=== PATIENT | female | born 1985 | race Hispanic/Latino ===

== ENCOUNTER 2024-11-05 18:48 | Emergency (ER) | payer BC, SELFPAY ==
[2024-11-05] MEDS ORDERED: HYDROCODONE/APAP 5/325 MG TAB ONE (19:38)
--- NOTE | 2024-11-05 19:40 | EDPHYS ---
Physician Documentation [facility] Name: Gisele Juárez Age: 38 yrs Sex: Female : 1985 Arrival Date: 11/05/2024 Time: 18:48 Bed IW1 Private MD: ED Physician Chava Lara HPI: 11/05 19:36 This 38 yrs old Female presents to ER via Ambulatory with complaints of sp3 Toothache. 19:36 38-year-old female with no significant past medical history presents with right sp3 mandibular pain and swelling for the last 48 hours. Patient states she has a dental abscess. She has a history of the same in the past. She has made an appointment for this Monday but states she needs pain medication and antibiotics. She denies any sore throat, difficulty breathing, airway compromise, chest pain, shortness of breath or any other symptoms on review of systems at this time.. Historical: - Allergies: 19:36 No Known Allergies; hb - Home Meds: 19:36 None [Active]; hb - PMHx: 19:36 None; hb - PSHx: 19:36 None; hb - Immunization history:: Adult Immunizations up to date. - Infectious Disease History:: Denies. - Social history:: Smoking status: Patient denies any tobacco usage or history of. ROS: 19:37 Constitutional: Negative for fever, chills, and weight loss, Eyes: Negative for injury, sp3 pain, redness, and discharge, Neck: Negative for injury, pain, and swelling, Cardiovascular: Negative for chest pain, palpitations, and edema, Respiratory: Negative for shortness of breath, cough, wheezing, and pleuritic chest pain, Abdomen/GI: Negative for abdominal pain, nausea, vomiting, diarrhea, and constipation, Back: Negative for injury and pain, MS/Extremity: Negative for injury and deformity, Skin: Negative for injury, rash, and discoloration, Neuro: Negative for headache, weakness, numbness, tingling, and seizure, Psych: Negative for depression, anxiety, suicide ideation, homicidal ideation, and hallucinations, Allergy/Immunology: Negative for hives, rash, and allergies, Endocrine: Negative for neck swelling, polydipsia, polyuria, polyphagia, and marked weight changes, Hematologic/Lymphatic: Negative for swollen nodes, abnormal bleeding, and unusual bruising, 19:37 All other systems are negative, Exam: 19:37 Constitutional: This is a well developed, well nourished patient who is awake, alert, sp3 and in no acute distress. Eyes: Pupils equal round and reactive to light, extra-ocular motions intact. Lids and lashes normal. Conjunctiva and sclera are non-icteric and not injected. Cornea within normal limits. Periorbital areas with no swelling, redness, or edema. Neck: Trachea midline, no thyromegaly or masses palpated, and no cervical lymphadenopathy. Supple, full range of motion without nuchal rigidity, or vertebral point tenderness. No Meningismus. Chest/axilla: Normal chest wall appearance and motion. Nontender with no deformity. No lesions are appreciated. Cardiovascular: Regular rate and rhythm with a normal S1 and S2. No gallops, murmurs, or rubs. Normal PMI, no JVD. No pulse deficits. Respiratory: Lungs have equal breath sounds bilaterally, clear to auscultation and percussion. No rales, rhonchi or wheezes noted. No increased work of breathing, no retractions or nasal flaring. Abdomen/GI: Soft, non-tender, with normal bowel sounds. No distension or tympany. No guarding or rebound. No evidence of tenderness throughout. Back: No spinal tenderness. No costovertebral tenderness. Full range of motion. Skin: Warm, dry with normal turgor. Normal color with no rashes, no lesions, and no evidence of cellulitis. MS/ Extremity: Pulses equal, no cyanosis. Neurovascular intact. Full, normal range of motion. Neuro: Awake and alert, GCS 15, oriented to person, place, time, and situation. Cranial nerves II-XII grossly intact. Motor strength 5/5 in all extremities. Sensory grossly intact. Cerebellar exam normal. Normal gait. Psych: Awake, alert, with orientation to person, place and time. Behavior, mood, and affect are within normal limits. 19:37 Head/face: Patient has poor dentition particularly in the right mandible. Exterior mandible swollen consistent with dental abscess.. Vital Signs: 19:35 BP 174 / 99; Pulse 74; Resp 16; Temp 98; Pulse Ox 100% on R/A; Weight 58.97 kg; Height hb 5 ft. 3 in. ; Pain 8/10; 19:35 Body Mass Index 23.03 (58.97 kg, 160.02 cm) hb 19:35 Pain Scale: Adult hb MDM: 19:36 Medical Screening Exam initiated sp3 19:38 Data reviewed: vital signs, nurses notes. ED course: Patient has right ventricular sp3 dental abscess. I have ruled out all other options. Will place on Augmentin and tramadol for home and administer Hurricane 2 tabs p.o. in the ED prior to discharge.. Administered Medications: 19:42 Drug: HYDROcodone-acetaminophen PO 5 mg-325 mg 2 tabs PO once Route: PO; hb 19:44 Follow up: Response: Medication administered at discharge. hb Disposition Summary: 11/05/24 19:39 Discharge Ordered Notes: Location: Home sp3 Condition: Stable sp3 Diagnosis - Dental abscess sp3 Followup: sp3 - With: Private Physician - When: Upon discharge from the Emergency Department - Reason: Continuance of care Discharge Instructions: - Discharge Summary Sheet sp3 - Dental Abscess sp3 Forms: - Medication Reconciliation Form sp3 - Antibiotic Education sp3 - Prescription Opioid Use sp3 - Patient Portal Instructions sp3 - Leadership Thank You Letter sp3 Prescriptions: - Augmentin 875-125 mg Oral Tablet - take 1 tablet ORAL route every 12 hours for 10 days; 20 tablet; Refills: 0, sp3 Product Selection Permitted - Tramadol 50 mg Oral Tablet - take 1 tablet ORAL route every 8 hours as needed; 12 tablet; Refills: 0, sp3 Product Selection Permitted Signatures: Cindi Estrada, MARIA A RN Chava Lara MD MD sp3
--- NOTE | 2024-11-05 19:40 | ER ---
Nurse's Notes [facility] Name: Gisele Juárez Age: 38 yrs Sex: Female : 1985 Arrival Date: 11/05/2024 Time: 18:48 Bed IW1 Private MD: Diagnosis: Dental abscess Presentation: 11/05 19:35 Chief complaint: Right lower molar pain and facial swelling swelling x 2 days. hb Coronavirus screen: At this time, the client does not indicate any symptoms associated with coronavirus-19. Ebola Screen: No symptoms or risks identified at this time. Initial Sepsis Screen: Does the patient meet any 2 criteria? No. Patient's initial sepsis screen is negative. Does the patient have a suspected source of infection? No. Patient's initial sepsis screen is negative. Risk Assessment: Do you want to hurt yourself or someone else? Patient reports no desire to harm self or others. Onset of symptoms was November 04, 2024. 19:35 Method Of Arrival: Ambulatory hb 19:35 Acuity: ZEV 4 hb Historical: - Allergies: 19:36 No Known Allergies; hb - Home Meds: 19:36 None [Active]; hb - PMHx: 19:36 None; hb - PSHx: 19:36 None; hb - Immunization history:: Adult Immunizations up to date. - Infectious Disease History:: Denies. - Social history:: Smoking status: Patient denies any tobacco usage or history of. Vital Signs: 19:35 BP 174 / 99; Pulse 74; Resp 16; Temp 98; Pulse Ox 100% on R/A; Weight 58.97 kg; Height hb 5 ft. 3 in. ; Pain 8/10; 19:35 Body Mass Index 23.03 (58.97 kg, 160.02 cm) hb 19:35 Pain Scale: Adult hb ED Course: 18:51 Patient arrived in ED. im 18:54 Chava Lara MD is Attending Physician. sp3 18:54 Soo Sykes FNP-C is [facility]. kb 19:36 Triage completed. hb 19:36 Arm band placed on. hb Administered Medications: 19:42 Drug: HYDROcodone-acetaminophen PO 5 mg-325 mg 2 tabs PO once Route: PO; hb 19:44 Follow up: Response: Medication administered at discharge. hb Outcome: 19:39 Discharge ordered by . sp3 19:43 Discharged to home ambulatory, 19:43 Condition: stable 19:43 Discharge instructions given to patient, Instructed on discharge instructions, follow up and referral plans. medication usage, Demonstrated understanding of instructions, follow-up care, medications, Prescriptions given X 2, 19:44 Patient left the ED. hb Signatures: Soo Sykes, HUGO-C HUGO-Cindi Hurt RN RN Chava Lara MD MD sp3 Elda Real
[2024-11-05 22:30] VITALS: BP 174/99; TEMP 98; O2SAT 100
== END 2024-11-05 19:44 | disposition home or self-care (01) ==
LOC: ER 18:48
DX: K04.7 Periapical abscess without sinus (principal)

== ENCOUNTER 2024-12-31 13:49 | Inpatient (IN) | payer SELFPAY ==
[2024-12-31 15:40] LABS: Specific Gravity 1.007 (1.005-1.030)
[2024-12-31 15:42] LABS: Specific Gravity 1.007 (1.005-1.030); Sqamous Epithelial <5 /HPF (None Seen); Urine Bacteria <20 /HPF (<20); Urine Bilirubin NEGATIVE (Negative); Urine Blood Trace (Negative); Urine Clarity Extremely Turbid (Clear); Urine Color Light-Yellow (Yellow); Urine Crystals Unidentified Few /HPF (None Seen); Urine Culture Reflex Order REFLEXED; Urine Glucose NEGATIVE (Negative); Urine Ketones NEGATIVE (Negative); Urine Microscopic Reflex YN ORDER UMIC; Urine Mucus Slight /HPF (None Seen); Urine Nitrite NEGATIVE (Negative); Urine Protein 1+ (Negative); Urine Urobilinogen 2+ (Normal); Urine WBC >50 /HPF (<5); Urine WBC Clump Rare /HPF (None Seen)
[2024-12-31 15:55] LABS: Influenza A Ag Negative; Influenza B Ag Negative; SARS-CoV-2 Antigen Rapid Res Negative (Negative)
[2024-12-31] MEDS ORDERED: ACETAMINOPHEN 500 MG TAB ONE (16:28)
[2024-12-31] MEDS ORDERED: NA CHLORIDE 0.9% 1,000 ML ONE (16:29)
[2024-12-31 16:39] LABS: Absolute Lymphocytes (CBC) 1.8 K/uL (0.7-4.9); Absolute Monocytes 1.5 K/uL (0.1-1.3); Absolute Neutrophil 10.7 K/uL (1.8-8.0); Basophils % 0.3 % (0-1.3); Eosinophils % 0.1 % (0-4.4); Hemoglobin 11.3 g/dL (12.0-15.0); Lymphocytes % 12.8 % (15.3-44.8); MCH 32.9 pg (27.0-35.0); MCHC 35.4 g/dL (32.0-36.0); MCV 92.9 fL (80-100); MPV 7.9 fL (7.6-11.3); Monocytes % 10.9 % (3.3-12.3); Neutrophils % 75.9 % (41.7-73.7); Platelets 340 thou/uL (152-406); RBC Red Blood Cell Count 3.44 M/uL (3.86-4.86)
[2024-12-31 17:17] LABS: Monoscreen NEG (NEG)
[2024-12-31 17:27] LABS: Anion Gap 10.7 mEq/L (5.0-15.0); Potassium 2.7 mEq/L (3.5-5.1)
[2024-12-31 17:41] LABS: Sodium Level 132 mEq/L (136-145)
[2024-12-31 17:43] LABS: BUN Blood Urea Nitrogen < 3 mg/dL (7-18); Bicarbonate 27 mEq/L (21-32); Glomerular Filtration Rate 114 ml/min (=/>90); Glucose Level 129 mg/dL (74-106)
--- NOTE | 2024-12-31 19:17 | RAD REPORT ---
EXAMINATION: CT ABDOMEN AND PELVIS WITH CONTRAST CLINICAL INDICATION: Flank pain;Fever TECHNIQUE: CT abdomen and pelvis was performed, after the administration of IV contrast, as per formerly [facility] protocol. Axial, sagittal and coronal reconstructions were obtained. One or more of the following dose reduction techniques were used: Automated exposure control, adjustment of the mA and k V according to patient size, and iterative reconstruction. Unless otherwise specified, incidental findings do not require dedicated imaging follow-up. COMPARISON: No prior exam. FINDINGS: LOWER CHEST: The visualized lung bases are clear. LIVER: Normal in size and contour. No focal lesion. Grossly unremarkable gallbladder. SPLEEN: Normal size. No focal lesion. PANCREAS: No mass, ductal dilation, or nicko-pancreatic fluid. ADRENALS: Normal; no mass. KIDNEYS: The right kidney appears enlarged with mild perinephric inflammation and several low-attenua tion areas compatible with right-sided pyelonephritis. No perinephric abscess. The left kidney appears normal. GASTROINTESTINAL TRACT: No evidence of free air, significant intra-abdominal free fluid, bowel obstru ction or abscess. APPENDIX: Normal appendix. LYMPH NODES: No lymphadenopathy. MUSCULOSKELETAL: No acute or suspicious osseous abnormality. Anterior abdominal wall hernia mesh. Sma ll fat-containing umbilical hernia. ADDITIONAL FINDINGS: Large ventral hernia to the right of midline anterior lower pelvis with hernia s ac noted to measure 8.4 x 3 cm and contains mildly reticulated fat. IMPRESSION: Right-sided pyelonephritis is present. No abscess seen. Large ventral hernia as detailed in the pelvis containing mildly reticulated fat, could indicate inca rceration. Advise correlation with physical exam findings in this region.
--- NOTE | 2024-12-31 19:25 | EDPHYS ---
Physician Documentation [facility] Name: Gisele Juárez Age: 39 yrs Sex: Female : 1985 Arrival Date: 12/31/2024 Time: 13:49 Bed 24 Private MD: ED Physician Chava Lara HPI: 12/31 14:10 This 39 yrs old Female presents to ER via Unassigned with complaints of Flu kb Symptoms. 14:10 Pt is a 39 year old female who presents for fever, chills, nausea, headache, bodyaches kb and excessive thirst that started 4 days ago. Denies vomiting, diarrhea, cough, congestion, sore throat, sick contacts. . 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 - Infectious Disease History:: Denies. ROS: 14:10 Constitutional: As per HPI kb Exam: 14:10 Constitutional: This is a well developed, well nourished patient who is awake, alert, kb and in no acute distress. Head/Face: Normocephalic, atraumatic. ENT: Moist Mucous membranes Cardiovascular: Regular rate Respiratory: Respirations even and unlabored. No increased work of breathing. Talking in full sentences Abdomen/GI: Soft, non-tender. No distention Skin: Warm, dry with normal turgor. Normal color. MS/ Extremity: Pulses equal, no cyanosis. Neurovascular intact. Full, normal range of motion. Neuro: Awake and alert, GCS 15, oriented to person, place, time, and situation. 19:34 ECG was reviewed by the Attending Physician. kb Vital Signs: 15:23 BP 119 / 71; Pulse 115; Resp 18; Pulse Ox 98% ; Pain 8/10; bc6 16:07 Pulse 116; Temp 103(O); Pulse Ox 98% on R/A; bd 16:37 BP 119 / 74; Pulse 103; Resp 20; Temp 99.9; Pulse Ox 100% ; kj2 17:39 BP 112 / 63; Pulse 93; Resp 18; Pulse Ox 99% on R/A; kj2 18:51 BP 111 / 62; Pulse 88; Resp 20; Pulse Ox 100% ; kj2 19:29 BP 108 / 67; Pulse 78; Resp 17; Pulse Ox 99% on R/A; af3 20:00 BP 103 / 62; Pulse 77; Resp 18; Temp 98.1; Pulse Ox 100% on R/A; kj2 15:23 Pain Scale: Adult bc6 MDM: 13:52 Medical Screening Exam initiated kb 14:11 Differential diagnosis: flu, covid, viral illness, uti. Data reviewed: vital signs, kb nurses notes. 19:22 Consideration of Admission/Observation Patient was admitted/placed on observation. kb Escalation of care including admission/observation considered. Management of patient was discussed with the following: Hospitalist: Dr Zarco accepts pt for admission. Counseling: I had a detailed discussion with the patient and/or guardian regarding the historical points, exam findings, and any diagnostic results supporting the discharge/admit diagnosis, lab results, radiology results, the need for further work-up and treatment in the hospital. 12/31 14:10 Order name: Urinalysis w/ reflexes; Complete Time: 15:44 kb 12/31 14:10 Order name: COVID-19 Ag + Flu A+B Ag; Complete Time: 15:56 kb 12/31 14:10 Order name: Test, Urine; Complete Time: 15:51 kb 12/31 15:46 Order name: Urine Culture EDMS 12/31 16:08 Order name: CBC with Diff; Complete Time: 17:09 kb 12/31 16:08 Order name: BMP; Complete Time: 17:44 kb 12/31 16:08 Order name: [place] Screen Profile; Complete Time: 17:21 kb 12/31 16:13 Order name: Glucose, Ancillary Testing; Complete Time: 16:16 EDMS 12/31 18:20 Order name: Blood Culture Adult (2) kb 12/31 18:20 Order name: Lactate w/ 2H reflex if indic.; Complete Time: 19:43 kb 12/31 18:20 Order name: Protime (+inr); Complete Time: 19:33 kb 12/31 18:20 Order name: Ptt, Activated; Complete Time: 19:33 kb 12/31 18:20 Order name: LFT's; Complete Time: 19:51 kb 12/31 19:40 Order name: Basic Metabolic Panel EDMS 12/31 19:40 Order name: Basic Metabolic Panel EDMS 12/31 19:40 Order name: Basic Metabolic Panel EDMS 12/31 19:40 Order name: Basic Metabolic Panel EDMS 12/31 19:40 Order name: CBC with Automated Diff EDMS 12/31 19:40 Order name: CBC with Automated Diff EDMS 12/31 19:40 Order name: CBC with Automated Diff EDMS 12/31 19:40 Order name: CBC with Automated Diff EDMS 12/31 18:16 Order name: CT Abd/Pelvis - IV Contrast Only; Complete Time: 19:18 kb 12/31 15:50 Order name: Blood Glucose Level; Complete Time: 16:02 kb 12/31 16:08 Order name: IV Start; Complete Time: 16:25 kb 12/31 18:20 Order name: EKG - Nurse/Tech; Complete Time: 19:29 kb 12/31 18:20 Order name: IV Saline Lock - Large Bore; Complete Time: 19:19 kb 12/31 18:20 Order name: Labs collected and sent; Complete Time: 19:19 kb 12/31 18:20 Order name: O2 Sat Monitoring; Complete Time: 19:19 kb 12/31 18:20 Order name: Vital Signs; Complete Time: 19:29 kb EC:34 Rate is 78 beats/min. Rhythm is regular. QRS [place] is Normal. [place] interval is normal at kb 158 msec. QRS interval is normal at 100 msec. QT interval is normal at 414 msec. Administered Medications: 16:35 Drug: NS 0.9% IV 1000 ml IV at 1000 ml once; to be given as a bolus over 60 minutes kj2 Route: IV; Rate: 1000 ml; Site: right antecubital; 16:35 Drug: Acetaminophen PO 1000 mg PO once Route: PO; kj2 19:41 Drug: Rocephin IV 1 grams IV at calculated rate once; give after blood cultures drawn kj2 Route: IV; Rate: calculated rate; Site: right antecubital; 21:58 Follow up: IV Status: Completed infusion; IV Intake: 10ml kj2 19:41 Drug: Ketorolac IVP 15 mg IVP once Route: IVP; Site: right antecubital; kj2 21:58 Follow up: Response: No adverse reaction kj2 19:42 Drug: Potassium PO Effervescent Tablet 50 mEq PO once; dissolve in 4 ounces of water or kj2 juice Route: PO; 21:59 Follow up: Response: No adverse reaction kj2 20:07 Drug: Potassium Chloride IV 20 mEq IV at calculated rate once; administer over 1-2 kj2 hours Route: IV; Rate: calculated rate; Site: right antecubital; Disposition Summary: 12/31/24 19:24 Hospitalization Ordered Notes: Hospitalization Status: Inpatient Admission kb Provider: Nna Zarco Condition: Stable kb Problem: new kb Symptoms: are unchanged kb Bed/Room Type: Standard kb Location: Telemetry/MedSurg (Inpatient)(12/31/24 22:19) Room Assignment: [facility](12/31/24 22:19) Diagnosis - Pyelonephritis acute kb - Hypokalemia kb Forms: - Medication Reconciliation Form kb - SBAR form kb - Leadership Thank You Letter kb Critical care time excluding procedures: 23:52 Critical care time: Bedside Care: 15 minutes, Consultation: 5 minutes, Family kb Intervention: 10 minutes. Total time: 30 minutes Signatures: Dispatcher [employer] EDMS Soo Sykes, THERMODYNAMIC PHYSICIST-C THERMODYNAMIC PHYSICIST-Rubia Snider RN RN Ani Presley RN Lolita Evans RN RN vc1 Maris Haskins RN RN kj2 Corrections: (The following items were deleted from the chart) 14:11 14:11 Urinalysis+U.LAB.BRZ ordered. EDMS EDMS 14:11 14:11 COVID-19 Ag + Flu A+B Ag+I.LAB.BRZ ordered. EDMS EDMS 14:11 14:11 Test, Urine+UC.LAB.BRZ ordered. EDMS EDMS 19:58 19:24 Telemetry/MedSurg (Inpatient) kb vc1 19:58 19:24 kb vc1 22:18 19:58 [facility] ER HOLD vc1 kl 22:18 19:58 ERHOLD- vc1 kl 22:19 22:18 Telemetry/MedSurg (Inpatient) kl kl 22:19 22:18 411 [address] kl
--- NOTE | 2024-12-31 19:25 | ER ---
Nurse's Notes [facility] Name: Gisele Juárez Age: 39 yrs Sex: Female : 1985 Arrival Date: 12/31/2024 Time: 13:49 Bed 24 Private MD: Diagnosis: Pyelonephritis acute;Hypokalemia Presentation: 12/31 14:32 Chief complaint: Patient states: 4 days of chills, headaches, fever , nausea body iw aches. Coronavirus screen: Client presents with at least one sign or symptom that may indicate coronavirus-19. Ebola Screen: No symptoms or risks identified at this time. Initial Sepsis Screen: Does the patient meet any 2 criteria? No. Patient's initial sepsis screen is negative. Does the patient have a suspected source of infection? No. Patient's initial sepsis screen is negative. Risk Assessment: Do you want to hurt yourself or someone else? Patient reports no desire to harm self or others. 14:32 Method Of Arrival: Ambulatory iw 14:32 Acuity: ZEV 4 iw 16:36 Acuity: ZEV 3 iw 16:40 Onset of symptoms was December 27, 2024. 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 - Infectious Disease History:: Denies. Screenin:39 [facility] ED Fall Risk Assessment (Adult) History of falling in the last 3 months, kj2 including since admission No falls in past 3 months (0 pts) Confusion or Disorientation No (0 pts) Intoxicated or Sedated No (0 pts) Impaired Gait No (0 pts) Mobility Assist Device Used No (0 pt) Altered Elimination No (0 pt) Score/Fall Risk Level 0 - 2 = Low Risk Maintained a safe environment, Hourly rounding (assess needs \T\ fall precautionary measures) done. Abuse screen: Denies threats or abuse. Denies injuries from another. Nutritional screening: No deficits noted. Tuberculosis screening: No symptoms or risk factors identified. Assessment: 16:36 General: Appears in no apparent distress. Behavior is calm, cooperative. Pain: kj2 Complains of pain in headache Pain currently is 5 out of 10 on a pain scale. Neuro: Level of Consciousness is awake, alert, obeys commands, Oriented to person, place, time, situation. Cardiovascular: Patient's skin is warm and dry. GI: Reports nausea. : No signs and/or symptoms were reported regarding the genitourinary system. 17:39 Reassessment: Patient appears in no apparent distress at this time. Patient and/or kj2 family updated on plan of care and expected duration. Pain level reassessed. Patient is alert, oriented x 3, equal unlabored respirations, skin warm/dry/pink. 18:50 Reassessment: Patient appears in no apparent distress at this time. Patient and/or kj2 family updated on plan of care and expected duration. Pain level reassessed. Patient is alert, oriented x 3, equal unlabored respirations, skin warm/dry/pink. 18:50 Reassessment: pt now back from CT scan. kj2 20:00 Reassessment: Patient appears in no apparent distress at this time. Patient and/or kj2 family updated on plan of care and expected duration. Pain level reassessed. Patient is alert, oriented x 3, equal unlabored respirations, skin warm/dry/pink. Vital Signs: 15:23 BP 119 / 71; Pulse 115; Resp 18; Pulse Ox 98% ; Pain 8/10; bc6 16:07 Pulse 116; Temp 103(O); Pulse Ox 98% on R/A; bd 16:37 BP 119 / 74; Pulse 103; Resp 20; Temp 99.9; Pulse Ox 100% ; kj2 17:39 BP 112 / 63; Pulse 93; Resp 18; Pulse Ox 99% on R/A; kj2 18:51 BP 111 / 62; Pulse 88; Resp 20; Pulse Ox 100% ; kj2 19:29 BP 108 / 67; Pulse 78; Resp 17; Pulse Ox 99% on R/A; af3 20:00 BP 103 / 62; Pulse 77; Resp 18; Temp 98.1; Pulse Ox 100% on R/A; kj2 15:23 Pain Scale: Adult bc6 ED Course: 13:51 Patient arrived in ED. im 13:52 Soo Sykes FNP-C is PHCP. kb 13:52 Chava Lara MD is Attending Physician. kb 14:32 Triage completed. iw 14:33 Arm band placed on. iw 15:18 Test, Urine Sent. bc6 15:18 COVID-19 Ag + Flu A+B Ag Sent. bc6 15:18 Urinalysis w/ reflexes Sent. bc6 16:25 Maris Haskins, RN is Primary Nurse. kj2 16:25 Inserted saline lock: 20 gauge in left antecubital area, using aseptic technique. Blood kj2 collected. Flushed with 10 mL NS. 16:39 Patient has correct armband on for positive identification. Bed in low position. Call kj2 light in reach. Adult w/ patient. Provided Education on: call light. 18:48 CT Abd/Pelvis - IV Contrast Only In Process Unspecified. EDMS 19:19 LFT's Sent. af3 19:19 Blood Culture Adult (2) Sent. af3 19:19 Lactate w/ 2H reflex if indic. Sent. af3 19:19 Protime (+inr) Sent. af3 19:19 Ptt, Activated Sent. af3 19:24 Nan Zarco MD is Hospitalizing Provider. kb 19:29 EKG done, by medical laboratory technician. reviewed by Soo HUSSEIN. af3 21:57 No provider procedures requiring assistance completed. kj2 Administered Medications: 16:35 Drug: NS 0.9% IV 1000 ml IV at 1000 ml once; to be given as a bolus over 60 minutes kj2 Route: IV; Rate: 1000 ml; Site: right antecubital; 16:35 Drug: Acetaminophen PO 1000 mg PO once Route: PO; kj2 19:41 Drug: Rocephin IV 1 grams IV at calculated rate once; give after blood cultures drawn kj2 Route: IV; Rate: calculated rate; Site: right antecubital; 21:58 Follow up: IV Status: Completed infusion; IV Intake: 10ml kj2 19:41 Drug: Ketorolac IVP 15 mg IVP once Route: IVP; Site: right antecubital; kj2 21:58 Follow up: Response: No adverse reaction kj2 19:42 Drug: Potassium PO Effervescent Tablet 50 mEq PO once; dissolve in 4 ounces of water or kj2 juice Route: PO; 21:59 Follow up: Response: No adverse reaction kj2 20:07 Drug: Potassium Chloride IV 20 mEq IV at calculated rate once; administer over 1-2 kj2 hours Route: IV; Rate: calculated rate; Site: right antecubital; Medication: 16:40 VIS not applicable for this client. kj2 Intake: 21:58 IV: 10ml; Total: 10ml. kj2 Outcome: 19:24 Decision to Hospitalize by Provider. kb 23:59 Patient left the ED. vc1 Signatures: Dispatcher [employer] EDMS Soo Sykes, HUGO-C LOGISTICS MANAGEMENT SPECIALIST-Maggie Velez Irene, RN MARIA A iw Lolita Parada RN RN vc1 Mago Teran bc6 Elda Real Krystal, RN RN kj2 Carmen Chase
[2024-12-31 19:32] LABS: PT Prothrombin Time 16.2 SECONDS (10-13.0); PTT, Activated Partial Thromb 32.9 SECONDS (27.2-37.4); Protime INR 1.45
[2024-12-31] MEDS ORDERED: MORPHINE 2 MG/ML SYR IV PRN (19:35)
[2024-12-31] MEDS ORDERED: KETOROLAC 30 MG/ML INJ ONE (19:35)
[2024-12-31] MEDS ORDERED: POTASSIUM 25 MEQ EFFERV TAB ONE (19:35)
[2024-12-31] MEDS ORDERED: CEFTRIAXONE 1000 MG/VIAL ONE (19:35)
[2024-12-31] MEDS ORDERED: KCL 20 MEQ/100 mL IVPB 100 ML IV ONE (19:36)
--- NOTE | 2024-12-31 19:39 | P.HP ---
Patient History Date of Service: 01/01/25 History of Present Illness: 39-year-old female with minimal past medical history presenting with fevers and found to have pyelonephritis. She states she has been running fevers, chills, body, diaphoresis, back pain since Monday. This is never happened before. She took some [id number] ibuprofen and Tylenol flu. Her fever persisted despite the use of medication. She does use a vape. She denies hematuria, vaginal, diarrhea. Her boyfriend is present at bedside Allergies No Known Allergies Allergy (Unverified 12/31/24 22:17) Review of Systems General: Fever, Chills, As per HPI Eyes: Unremarkable ENT: Unremarkable Respiratory: Unremarkable Cardiovascular: Unremarkable Gastrointestinal: Unremarkable Musculoskeletal: Back Pain Integumentary: Unremarkable Neurological: Unremarkable Physical Examination - Physical Exam General: Alert, In no apparent distress HEENT: Normocephalic Neck: Supple Respiratory: Clear to auscultation bilaterally, Normal air movement Cardiovascular: No edema Capillary refill: <2 Seconds Gastrointestinal: Normal bowel sounds Musculoskeletal: No clubbing Integumentary: No rashes - Studies Laboratory Data (last 24 hrs) 12/31/24 12/31/24 12/31/24 19:15 16:20 16:20 WBC 14.20 H Hgb 11.3 L Hct 32.0 L Plt Count 340 PT 16.2 H INR 1.45 APTT 32.9 Sodium 132 L Potassium 2.7 L BUN < 3 L Creatinine 0.65 Glucose 129 H Assessment and Plan - Plan Acute pyelonephritis Hyponatremia Hypokalemia Anemia Admit to floor Start IV Rocephin Urine culture pending Start normal saline, monitor sodium Replace potassium DVT prophylaxis with Lovenox - Advance Directives Does patient have a Living Will: No Does patient have a Durable POA for Healthcare: No
[2024-12-31 19:49] LABS: ALT/SGPT 75 U/L (13-56); AST/SGOT 35 U/L (15-37); Albumin 2.3 g/dL (3.4-5.0); Albumin/Globulin Ratio 0.6 (1.1-1.8); Alkaline Phosphatase 102 U/L (45-117); Bilirubin Total 0.3 mg/dL (0.2-1.0); Globulin 3.9 g/dL (2.3-3.5); Protein, Total 6.2 g/dL (6.4-8.2)
[2024-12-31 19:51] LABS: Bilirubin Direct < 0.2 mg/dL (0-0.2); Bilirubin Indirect, Calculated 0.1 mg/dL (0.2-0.8)
[2024-12-31] MEDS: NA CHLORIDE 0.9% 1,000 ML IV SCH (20:00)
[2024-12-31] MEDS ORDERED: NA CHLORIDE 0.9% 250 ML ONE (20:52)
[2024-12-31] MEDS ORDERED: NA CHLORIDE 0.9% 500 ML ONE (21:30)
[2024-12-31 22:13] VITALS: BMI 23.0
[2025-01-01] MEDS: MORPHINE 2 MG/ML SYR IV PRN (00:30)
[2025-01-01 00:31] VITALS: O2SAT 100
[2025-01-01] MEDS: ONDANSETRON 4 MG/2 ML VIAL IV PRN (00:31)
[2025-01-01] MEDS: ACETAMINOPHEN 500 MG TAB PO PRN (04:06)
[2025-01-01 06:10] LABS: Absolute Lymphocytes (CBC) 1.8 K/uL (0.7-4.9); Absolute Monocytes 1.2 K/uL (0.1-1.3); Absolute Neutrophil 8.9 K/uL (1.8-8.0); Basophils % 0.3 % (0-1.3); Eosinophils % 0.3 % (0-4.4); Hematocrit 28.5 % (36.0-45.0); Hemoglobin 9.9 g/dL (12.0-15.0); Lymphocytes % 14.8 % (15.3-44.8); MCH 32.8 pg (27.0-35.0); MCHC 34.7 g/dL (32.0-36.0); MCV 94.5 fL (80-100); MPV 7.9 fL (7.6-11.3); Monocytes % 9.8 % (3.3-12.3); Neutrophils % 74.8 % (41.7-73.7); Nucleated Red Blood Cells % 0.1 % (0-0); Platelets 305 thou/uL (152-406); RBC Red Blood Cell Count 3.02 M/uL (3.86-4.86); Red Cell Distribution Width 13.9 % (12.1-15.2)
[2025-01-01] MEDS: FLU (Fluarix Triv) TS24-25(6MOS UP)/PF 45 MCG/0.5 ML Syringe IM ONE (07:30)
[2025-01-01] MEDS: PNEUMOCOCCAL VACCINE 0.5 ML IMVAC ONE (08:00)
[2025-01-01] MEDS: CEFTRIAXONE 1,000 MG in NA CHLORIDE 0.9% 50 ML IVPB SCH (08:33)
--- NOTE | 2025-01-01 15:20 | P.PN ---
Subjective Date of Service: 01/01/25 Patient is complaining of headache. No fever recorded since this morning. Physical Examination - Vital Signs Temperature: 98.2 F Blood Pressure: 106/58 Pulse: 75 Respirations: 18 Pulse Ox (%): 99 - Studies Laboratory Data (last 24 hrs) 12/31/24 12/31/24 12/31/24 19:15 19:15 16:20 WBC Hgb Hct Plt Count PT 16.2 H INR 1.45 APTT 32.9 Sodium 132 L Potassium 2.7 L BUN < 3 L Creatinine 0.65 Glucose 129 H Total Bilirubin 0.3 AST 35 ALT 75 H Alkaline Phosphatase 102 12/31/24 16:20 WBC 14.20 H Hgb 11.3 L Hct 32.0 L Plt Count 340 PT INR APTT Sodium Potassium BUN Creatinine Glucose Total Bilirubin AST ALT Alkaline Phosphatase Assessment And Plan - Plan Physical examination General: Alert and oriented x3, NAD, HEENT: Anicteric sclera Neck: Supple, no elevated JVD Heart: Heart sounds 1 and 2 normal, regular rhythm, normal rate, no pedal edema Lungs: Clear to auscultation bilaterally, adequate breath sounds bilaterally, no rhonchi or crackles. Abdomen: Soft, nondistended, nontender, normal bowel sounds. Extremities: No tenderness, no deformity Skin: Normal skin turgor, no rash, no nodules or ulcers. Neuro: No focal motor deficit. Normal speech. Psychiatry: Normal mood, no agitation. Diagnosis Acute pyelonephritis Sepsis Hyponatremia Hypokalemia Anemia Plan: Acute pyelonephritis Sepsis Patient states she feels clinically better. Continue IV Rocephin Follow urine culture and blood cultures Analgesics as needed Hyponatremia Hypokalemia Monitor and correct electrolytes as needed. Anemia Drop in hemoglobin likely secondary to hemodilution No evidence of active bleeding. Monitor and transfuse as needed. DVT prophylaxis: Lovenox Advance Directive: Full code.
[2025-01-01] MEDS: ENOXAPARIN 40 MG/0.4 ML SQ SCH (17:43)
[2025-01-02 07:20] LABS: Absolute Basophils 0.1 K/uL (0-0.5); Absolute Eosinophils 0.1 K/uL (0-0.5); Absolute Lymphocytes (CBC) 2.2 K/uL (0.7-4.9); Absolute Monocytes 0.7 K/uL (0.1-1.3); Basophils % 0.6 % (0-1.3); Eosinophils % 0.5 % (0-4.4); Hematocrit 31.7 % (36.0-45.0); Lymphocytes % 18.7 % (15.3-44.8); MCH 32.8 pg (27.0-35.0); MCHC 34.7 g/dL (32.0-36.0); MCV 94.6 fL (80-100); MPV 8.1 fL (7.6-11.3); Monocytes % 5.9 % (3.3-12.3); Neutrophils % 74.3 % (41.7-73.7); Platelets 400 thou/uL (152-406); RBC Red Blood Cell Count 3.35 M/uL (3.86-4.86); Red Cell Distribution Width 14.2 % (12.1-15.2)
[2025-01-02 07:26] LABS: Anion Gap 10.4 mEq/L (5.0-15.0); Bicarbonate 25 mEq/L (21-32); Glomerular Filtration Rate 120 ml/min (=/>90); Glucose Level 136 mg/dL (74-106); Potassium 3.4 mEq/L (3.5-5.1); Sodium Level 138 mEq/L (136-145)
[2025-01-02 07:27] LABS: BUN Blood Urea Nitrogen < 3 mg/dL (7-18)
[2025-01-02] MEDS: Meropenem 1,000 MG in NA CHLORIDE 0.9% 100 ML IV SCH (08:41)
--- NOTE | 2025-01-02 14:39 | P.PN ---
Subjective Date of Service: 01/02/25 Patient is complaining of headache. She also reports an episode of fever and chills last night Low-grade fever recorded this morning. Physical Examination - Vital Signs Temperature: 98.0 F Blood Pressure: 114/68 Pulse: 71 Respirations: 16 Pulse Ox (%): 99 - Studies Microbiology Data (last 24 hrs): 12/31/24 15:20 Clean Catch Urine [place] Count - Final >100,000 CFU/ML. 12/31/24 15:20 Clean Catch Urine - Final Escherichia Coli Esbl Assessment And Plan - Plan Physical examination General: Alert and oriented x3, NAD, Heart: Heart sounds 1 and 2 normal, regular rhythm, normal rate, no pedal edema Lungs: Clear to auscultation bilaterally, adequate breath sounds bilaterally, no rhonchi or crackles. Abdomen: Soft, nondistended, nontender, normal bowel sounds. Extremities: No tenderness, no deformity Skin: Normal skin turgor, no rash, no nodules or ulcers. Neuro: No focal motor deficit. Psychiatry: Normal mood. Diagnosis Acute pyelonephritis Sepsis Hyponatremia Hypokalemia Anemia Plan: Acute pyelonephritis Sepsis Patient states she feels clinically better. Continue IV Rocephin Follow urine culture and blood cultures Analgesics as needed Hyponatremia Hypokalemia Monitor and correct electrolytes as needed. Anemia Drop in hemoglobin likely secondary to hemodilution No evidence of active bleeding. Monitor and transfuse as needed. 01/02 Urine culture is growing ESBL E. coli Antibiotics changed to IV meropenem Infectious disease consulted to assist with management Patient needs about 10 days of IV meropenem/Invanz for pyelonephritis Analgesics as needed Insert midline for outpatient IV antibiotic Social service consulted to assist with outpatient IV antibiotic arrangement. Hyponatremia resolved Continue to correct hypokalemia as needed. DVT prophylaxis: Lovenox Advance Directive: Full code.
[2025-01-02] MEDS: MELATONIN 5 MG TABLET PO PRN (21:25)
[2025-01-02] MEDS: ACETAMIN/CAFFEINE/BUTALB TAB PO PRN (21:25)
[2025-01-02] MEDS: Mupirocin NASAL 2 APPL/1 GM TUBE NAS SCH (21:25)
--- NOTE | 2025-01-02 23:38 | CON ---
History Of Present Illness: This is a 39-year-old female I was consulted for the evaluation and erlin gemrandy of antibiotic of acute pyelonephritis and sepsis. The patient denies any previous history of pyelonephritis, has had some urinary tract infection. No other significant history except and hernia repair. The patient denies any headache, nausea, vomiting, chest pain, abdominal pain, co nstipation, or diarrhea. She was initially presented to the hospital with fevers, chills, body aches , diaphoresis, back pain, which started couple of days prior to admission. The patient took some ibu profen and Tylenol flu, did not improve her symptoms. 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 Past Medical History: As per HPI. Social History: Nonsmoker, nondrinker. Family History: Noncontributory. Medications: Meropenem. See MARs for other medications. Allergies: NO KNOWN DRUG ALLERGIES. Review of Systems: A 10-point review was performed. Physical Examination: General: This is a 39-year-old female, lying in bed, not in any acute cardiopulmonary distress. Vital Signs: Temperature 98, pulse 72, respirations 16, blood pressure 120/69. Lungs: Basal crackle. HEENT: Unremarkable. Neck: Supple. Lungs: Basal crackles. Heart: S1, S2. Regular. Abdomen: Soft, nontender. Bowel sounds present. Extremities: No edema. Laboratory Data: Shows WBC 12 down from 14,000, hemoglobin 11, platelets are 400. Chemistry shows B UN of 3, creatinine of 0.5. Albumin level of 2.3. Urine cultures are growing E coli ESBL more than 100,000. Assessment And Plan: 1. Urosepsis secondary to Escherichia coli extended-spectrum beta-lactamases. 2. Pyuria. 3. Hematuria. 4. Right-sided pyelonephritis with no abscess. Recommend antibiotic for total of 2 weeks. We will f ollow the patient as needed. Thank you Dr. Perez for consult. NF/MODL Voice ID: [id number] Report ID: [id number]
[2025-01-03 05:55] LABS: Absolute Basophils 0.1 K/uL (0-0.5); Absolute Eosinophils 0.1 K/uL (0-0.5); Absolute Lymphocytes (CBC) 2.4 K/uL (0.7-4.9); Absolute Monocytes 0.7 K/uL (0.1-1.3); Absolute Neutrophil 4.9 K/uL (1.8-8.0); Basophils % 1.5 % (0-1.3); Eosinophils % 0.8 % (0-4.4); Hematocrit 32.8 % (36.0-45.0); Hemoglobin 11.5 g/dL (12.0-15.0); Lymphocytes % 29.5 % (15.3-44.8); MCH 33.2 pg (27.0-35.0); MCV 94.8 fL (80-100); Monocytes % 8.1 % (3.3-12.3); Neutrophils % 60.1 % (41.7-73.7); Nucleated Red Blood Cells % 0.1 % (0-0); Platelets 472 thou/uL (152-406); RBC Red Blood Cell Count 3.46 M/uL (3.86-4.86); Red Cell Distribution Width 14.2 % (12.1-15.2)
[2025-01-03 06:05] LABS: Anion Gap 7.8 mEq/L (5.0-15.0); Potassium 3.8 mEq/L (3.5-5.1)
[2025-01-03 11:53] VITALS: BP 125/75; TEMP 98.1
[2025-01-03] MEDS: Meropenem 1,000 MG in NA CHLORIDE 0.9% 100 ML IV SCH (13:28)
--- NOTE | 2025-01-03 13:43 | P.DS ---
Admission Date: 12/31/24 Discharge Date: 01/03/25 Disposition: [place] [facility]/HOME HEALTH CARE Discharge Condition: [facility] Hospital Course: Diagnosis Acute pyelonephritis Sepsis Hyponatremia Hypokalemia Anemia Patient presented with fever both left and right flank pain. Evaluation in the ED revealed pyelonephritis-infection in the kidney. Patient was admitted to the medical floor and treated with IV Rocephin initially. Her urine culture grew ESBL E. coli, blood cultures did not grow any bacteria. IV Rocephin was changed to IV meropenem. Patient was evaluated by infectious disease specialist Dr. Leyva. Midline placed for outpatient IV antibiotics. Patient is discharged to complete 10 more days of IV meropenem. BMP and CBC at least once a week recommended during the antibiotic therapy at home. Vital Signs/Physical Exam: Temp Pulse Resp BP Pulse Ox 98.1 F 71 16 125/75 98 01/03/25 11:52 01/03/25 11:52 01/03/25 11:52 01/03/25 11:52 01/03/25 11:52 General: Alert, In no apparent distress, Oriented x3 HEENT: Mucous membr. moist/pink Neck: Supple, JVD not distended Respiratory: Clear to auscultation bilaterally, Normal air movement Cardiovascular: No edema, Regular rate/rhythm, Normal S1 S2 Gastrointestinal: Normal bowel sounds, Soft and benign, Non-distended Musculoskeletal: No swelling Integumentary: No rashes, No cyanosis Neurological: Normal speech, Normal strength at 5/5 x4 extr Laboratory Data at Discharge: WBC 8.20 thou/uL (4.3-10.9) 01/03/25 05:05 Hgb 11.5 g/dL (12.0-15.0) L 01/03/25 05:05 Hct 32.8 % (36.0-45.0) L 01/03/25 05:05 Plt Count 472 thou/uL (152-406) H 01/03/25 05:05 PT 16.2 SECONDS (10-13.0) H 12/31/24 19:15 INR 1.45 12/31/24 19:15 APTT 32.9 SECONDS (27.2-37.4) 12/31/24 19:15 Sodium 141 mEq/L (136-145) 01/03/25 05:05 Potassium 3.8 mEq/L (3.5-5.1) 01/03/25 05:05 BUN 4 mg/dL (7-18) L 01/03/25 05:05 Creatinine 0.40 mg/dL (0.55-1.02) L 01/03/25 05:05 Glucose 107 mg/dL (74-106) H 01/03/25 05:05 Total Bilirubin 0.3 mg/dL (0.2-1.0) 12/31/24 19:15 AST 35 U/L (15-37) 12/31/24 19:15 ALT 75 U/L (13-56) H 12/31/24 19:15 Alkaline Phosphatase 102 U/L (45-117) 12/31/24 19:15 Home Medications: Mupirocin Calcium [Bactroban Nasal*] 1 appl DEE BID #15 g 01/03/25 New Medications: Mupirocin Calcium [Bactroban Nasal*] 1 appl DEE BID #15 g Physician Discharge Instructions: Patient presented with fever both left and right flank pain. Evaluation in the ED revealed pyelonephritis-infection in the kidney. Patient was admitted to the medical floor and treated with IV Rocephin initially. Her urine culture grew ESBL E. coli, blood cultures did not grow any bacteria. IV Rocephin was changed to IV meropenem. Patient was evaluated by infectious disease specialist Dr. Leyva. Midline placed for outpatient IV antibiotics. Patient is discharged to complete 10 more days of IV meropenem. BMP and CBC at least once a week recommended during the antibiotic therapy at home. Diet: Regular Activity: Ad melisa Followup: Ramirez Leyva MD [ACTIVE - CAN ADMIT] - 1 Week NONE,NONE [Primary Care Provider] - 1 Week Time spent managing pt's care (in minutes): 36
--- NOTE | 2025-01-08 13:09 | EKG ---
Test Date: 2024-12-31 Test Time: 19:24:41 [employer] Advisor: AF MEASUREMENT RESULTS: Intervals: Rate: 78 WV: 158 QRSD: 100 QT: 364 QTc: 414 [place]: P: 39 WV: 158 QRS: 41 T: 56 INTERPRETIVE STATEMENTS: Normal sinus rhythm Incomplete right bundle branch block Nonspecific T wave abnormality Abnormal ECG No previous ECG available for comparison Electronically Signed On 01-08-25 12:49:17 CDT by Carlton Hull
== END 2025-01-03 14:22 | disposition home health service (06) | DRG 872 ==
LOC: ER 13:49 → ERHOLD 19:34 → 4TH 23:14
PROVIDERS: ADMIT Family Medicine; ATTEND Internal Medicine
PROC: 02HV33Z Insertion of Infusion Device into Superior Vena Cava, Percutaneous Approach (ICD-10-PCS; principal; 2025-01-02)
DX: A41.9 Sepsis, unspecified organism (principal); N10 Acute pyelonephritis; E87.1 Hypo-osmolality and hyponatremia; Z16.12 Extended spectrum beta lactamase (ESBL) resistance; E87.6 Hypokalemia; D64.9 Anemia, unspecified; B96.20 Unspecified Escherichia coli [E. coli] as the cause of diseases classified elsewhere; R31.9 Hematuria, unspecified; Z11.52 Encounter for screening for COVID-19
CPT/HCPCS: 36415; 74177; 80048; 80076; 81001; 81025; 82947; 83605; 85025; 85610; 85730; 86308; 87040; 87077; 87086; 87088; 87186; 87428; 93005; 96365; 96366; 96375; 99284; J0696; J1650; J2185; J2270; J2405; J3480; J7030; J7040; J7050; Q9967